=== PATIENT | female | born 1990 | race African-American/Black ===

== ENCOUNTER 2016-07-01 11:12 | Emergency (ER) | payer OTHER ==
[~2016-07-01] VITALS: Wt 63.5 kg
[~2016-07-01 11:12] MED LIST: ACET325T33 PO; ALBU8.5H3 INH; AMOX1TAB67 PO; AZIT250T94 PO; CEFU500T45 PO; CETI10CA PO; CIPR500T4 PO; FLUC150T17 PO; GUAI118L94 PO; IBUP-1542 PO; METR500T PO; NITR-58 PO; ONDA4TAB35 PO; ONDA4TAB8 PO; PRED20TA PO; PRENAT PO; PROM5SYR2 PO; SODI44SP11 NASAL
[2016-07-01 12:16] LABS: URINE BLOOD (Dip) POC Negative (NEGATIVE)
--- NOTE | 2016-07-01 12:16 | ERD ---
ER Documentation Chief Complaint Date/Time DATE: 07/01/16 TIME: 12:11 Chief Complaint LOW ABDOMINAL PAIN FOR THE PAST FEW MONTHS INTERMITTENT. NAUSEA .VOMITIN HPI Patient is a 26-year-old female who presents to the emergency department with pelvic pain 3 months. Patient states that she believed she had a miscarriage around April 10 of last year. Patient states she had bleeding for approximately 1 month. The bleeding has now resolved. Patient states since that time she has been having intermittent episodes of pelvic pain. Patient also reports daily nausea and vomiting. Patient states that she last vomited last night. Nonbloody nonbilious. She denies any cough, rhinorrhea, sore throat, fevers. Patient does report intermittent chills. Patient does report urinary frequency and dysuria. Patient denies any hematuria. Patient states her last menstrual period was in March of last year however she is unsure. ROS All systems reviewed and are negative except as per history of present illness. Medications Home Meds Active Scripts Cephalexin* (Keflex*) 500 Mg Capsule, 500 MG PO QID for 7 Days, CAP Prov:BRANDON SALMERON PA-C 07/01/16 Metoclopramide* (Reglan*) 10 Mg Tablet, 10 MG PO Q6 Y for NAUSEA AND/OR VOMITING , #10 TAB Prov:BRANDON SALMERON PA-C 07/01/16 Acetaminophen* (Tylophen*) 500 Mg Capsule, 1 CAP PO Q6H Y for PAIN AND OR ELEVATED TEMP, #20 CAP Prov:BRANDON SALMERON PA-C 07/01/16 Acetaminophen* (Tylenol*) 325 Mg Tablet, 1 TAB PO Q6 Y for PAIN AND OR ELEVATED TEMP, #20 TAB Prov:NAIMA HARTMANN PA-C 04/08/16 Nitrofurantoin Monohyd Macrocr* (Macrobid*) 100 Mg Capsr, 100 MG PO BID for 7 Days, CAP Prov:NAIMA HARTMANN PA-C 04/08/16 Cetirizine Hcl* (Zyrtec*) 10 Mg Capsule, 10 MG PO DAILY, #10 TAB.CHEW Prov:BEBE DUNCAN PA-C 03/29/16 Albuterol Sulfate* (Proair HFA*) 8.5 Gm Hfa.aer.ad, 2 PUFF INH Q4, #1 INHALER Prov:BEBE DUNCAN PA-C 03/29/16 Prednisone* (Prednisone*) 20 Mg Tab, 40 MG PO DAILY for 4 Days, TAB Prov:BEBE DUNCAN PA-C 03/29/16 Azithromycin* (Zithromax*) 250 Mg Tablet, 250 MG PO .MORGAN DIRECTED, #6 TAB TAKE 500 MG (2 TABS) THE FIRST DAY THEN 250 MG (1 TAB) DAYS 2-5 Prov:BEBE DUNCAN PA-C 03/29/16 Acetaminophen* (Tylenol*) 325 Mg Tablet, 1 TAB PO Q6 Y for PAIN AND OR ELEVATED TEMP, #20 TAB Prov:MICHELA ERAZO PA-C 03/02/16 Ondansetron Hcl* (Zofran*) 4 Mg Tablet, 4 MG PO Q6H for NAUSEA AND/OR VOMITING, #30 TAB Prov:MICHELA ERAZO PA-C 03/02/16 Ciprofloxacin Hcl* (Ciprofloxacin Hcl*) 500 Mg Tablet, 500 MG PO BID for 7 Days , TAB Prov:MICHELA ERAZO PA-C 03/02/16 Promethazine HCl/Codeine (Prometh-Codein 6.25-10 mg/5 ml) 5 Ml Syrup, 5 ML PO QHS, #100 Prov:MICHELA ERAZO PA-C 03/02/16 Nitrofurantoin Monohyd Macrocr* (Macrobid*) 100 Mg Capsr, 100 MG PO BID for 7 Days, CAP Prov:BEBE DUNCAN PA-C 01/14/16 Ondansetron Hcl* (Zofran* ODT) 4 mg -ODT Tab.disper, 4 MG PO Q6 Y for NAUSEA AND /OR VOMITING, #10 TAB Prov:ABI NICK DO 10/21/15 Fluconazole* (Diflucan*) 150 Mg Tablet, 150 MG PO ONCE, #1 TAB Prov:SPENCER HOPE PA-C 10/14/15 Cefuroxime Axetil* (Cefuroxime Axetil*) 500 Mg Tablet, 500 MG PO BID for 7 Days , TAB Prov:SPENCER HOPE PA-C 10/14/15 Metronidazole* (Flagyl*) 500 Mg Tablet, 500 MG PO BID for 7 Days, TAB Prov:SPENCER HOPE PA-C 10/14/15 Sodium Chloride (Saline Nasal [place]) 45 Ml [place], 2 SPRAYS NASAL Q2H Y for NASAL CONGESTION, #1 BOTTLE Prov:CARLOS MCBRIDE. BACK PAD INSPECTOR 06/28/15 Guaifenesin-Codeine Phosphate* (Guaifenesin* with Codeine Liq) 120 Ml Liquid, 5 ML PO Q4H for COUGH, #60 ML Prov:CARLOS MCBRIDE. BACK PAD INSPECTOR 06/28/15 Ibuprofen* (Motrin*) 600 Mg Tab, 600 MG PO Q6H Y for PAIN AND OR ELEVATED TEMP, #30 TAB Prov:CARLOS MCBRIDE. BACK PAD INSPECTOR 06/28/15 Amoxicillin-Clavulanate K* (Augmentin*) 500 Mg Tab, 500 MG PO BID for 5 Days, TAB Prov:EPI CRABTREE PA-C 04/09/15 Multivit/Min/Fol Ac/Iron/Pren* ( S*) 1 Tab Tab, 1 TAB PO DAILY for 30 Days, TAB Prov:BENITESPATRICK I. BACK PAD INSPECTOR 04/05/15 Nitrofurantoin Monohyd Macrocr* (Macrobid*) 100 Mg Capsr, 100 MG PO BID for 7 Days, CAP Prov:BENITESPATRICK I. BACK PAD INSPECTOR 04/05/15 Allergies Allergies: Coded Allergies: No Known Allergy (Unverified , 09/01/15) PMhx/Soc History of Surgery: No Anesthesia Reaction: No Hx Neurological Disorder: No Hx Respiratory Disorders: No Hx Cardiac Disorders: No Hx Psychiatric Problems: No Hx Miscellaneous Medical Probl: No Hx Alcohol Use: Yes Hx Alcohol Use: No Hx Substance Use: No Hx Tobacco Use: No Physical Exam Vitals Vital Signs Date Time Temp Pulse Resp B/P Pulse Ox O2 Delivery O2 Flow Rate FiO2 07/01/16 11:16 97.4 92 21 120/56 98 Physical Exam GENERAL: Well-developed, well-nourished female. Appears in no acute distress. HEAD: Normocephalic, atraumatic. EYES: Pupils are equally reactive bilaterally. EOMs grossly intact. No conjunctival erythema. ENT: Moist mucous membranes. No uvula deviation. No kissing tonsils. NECK: Supple. No meningismus. Normal range of motion of the neck. LUNG: Clear to auscultation bilaterally. No rhonchi, wheezing, rales or coarse breath sounds. HEART: Regular rate and rhythm. No murmurs, rubs or gallops. ABDOMEN: No scars, ecchymosis or rashes noted. Soft and nondistended. Palpable uterus. Tender to palpation of the suprapubic region. Positive bowel sounds in all four quadrants. No rebound tenderness, no guarding. (-) McBurney's point tenderness. No CVA tenderness. BACK: No midline tenderness. EXTREMITIES: Equal pulses bilaterally. No peripheral clubbing, cyanosis or edema. No unilateral leg swelling. NEUROLOGIC: Alert and oriented. Moving all four extremities without any difficulty. Normal speech. Steady gait. SKIN: Normal color. Warm and dry. No rashes or lesions. Results 24 hrs Laboratory Tests Test 07/01/16 12:14 Bedside Urine Blood Negative Bedside Urine Glucose (UA) Negative Bedside Urine Ketones (LAB) 4+ Bedside Urine Leukocyte Esterase (L 1+ Bedside Urine Nitrite (LAB) Negative Bedside Urine Protein (LAB) Trace Bedside Urine pH (LAB) 7.0 Procedures/MDM ED COURSE: The patient was stable throughout ED course. I kept the patient and/or family informed of laboratory and diagnostic imaging results throughout the ED course. Patient's urine test came back positive. I notify the patient that she was . Patient is unsure when her last menstrual period was an estimated to be in March of last year. At this time, transabdominal second to third trimester OB ultrasound was ordered. DIAGNOSTIC IMAGING: Read by radiologist. DIAGNOSTIC IMAGING REPORT Patient: MARISABEL SHOOK : 1990 Age: 26 Sex: F [id number] DOS: 07/01/16 1209 Ordering MD: BRANDON SALMERON PA-C Location: FTE Room/Bed: PROCEDURE: US OB. CLINICAL INDICATION: Size and dates , pelvic pain TECHNIQUE: Multiple sonographic images of the pelvis and gravid uterus were obtained. The images were reviewed on a PACS workstation. COMPARISON: 04/08/2016 FINDINGS: There is a single viable intrauterine gestation. Cardiac activity is present with 148 beats per minute. There is a vertex presentation. The placenta is anterior. There is no evidence for placenta previa. There are multiple placental lakes noted. There is a normal amount of amniotic fluid with a MVP = 5.2 cm. Measurements were made in order to determine age. The results are as follows: BPD = 4.6 cm HC = 16.4 cm AC = 15 cm FL = 3.1 cm Estimated gestational age of approximately 19 weeks and 5 days based on ultrasound measurements. The estimated date of delivery is 11/20/2016, based on ultrasound measurements. The EFW = 320 g, % RPTAT: AA IMPRESSION: Single viable intrauterine gestation of approximately 19 weeks and 5 days based on ultrasound measurements. Anterior placenta with placental lakes noted. .Thony Yañez MD, MD Date Time Electronically viewed and signed by .Thony Yañez MD, MD on 07/01/2016 13: 23 .S/ CC: BRANDON SALMERON PA-C MEDICAL DECISION MAKING: This is a 26-year-old female who presents with pelvic pain and intermittent episodes of vomiting 3 months. Vital signs were reviewed. Patient was afebrile. test was positive. Patient was unsure when her last period was. Estimated to be in March of last year. Patient denied any vaginal bleeding at this time. A transabdominal second/third trimester ultrasound was obtained which showed an intrauterine of approximately 19 weeks and 5 days. Anterior placenta with placental lakes noted. Patient's urine showed 1+ leukocyte esterase. Patient did not have any vaginal bleeding currently, blood work was not obtained. I discussed this case with my supervising physician, Dr. Barlow, who agreed with this plan. Given these findings, the patient's presentation is most consistent with intrauterine and UTI.. I have a much lower clinical concern for ectopic , ovarian torsion, PID, tubo-ovarian abscess, fibroids, endometriosis, vulvovaginitis, pyelonephritis, demise, threatened , incomplete . PRESCRIPTIONS: Keflex Tylenol Reglan DISCHARGE: At this time, patient is stable for discharge and outpatient management. Patient was advised to follow-up with an [employer] for further management of of her new . Patient will need to receive care as soon as possible. Patient is also advised to abstain from any drug or alcohol use given new diagnosis of . I have instructed the patient to follow-up with his/her primary care physician in 1-2 days. I have discussed with the patient the possibility of needing to see a specialist for further workup and diagnostic studies if the pain persists. I have instructed the patient to promptly return to the ER at any time for any new or worsening symptoms including increased pain, nausea, vomiting, vaginal bleeding, weakness or fever. The patient and/or family expressed understanding of and agreement with this plan. All questions were answered. Home care instructions were provided. Departure Diagnosis: Primary Impression: Weeks of gestation: unspecified Qualified Code: Z33.1 - , unspecified gestational age Condition: Stable Patient Instructions: , New Dx Referrals: [facility] YOU HAVE RECEIVED A MEDICAL SCREENING EXAM AND THE RESULTS INDICATE THAT YOU DO NOT HAVE A CONDITION THAT REQUIRES URGENT TREATMENT IN THE EMERGENCY DEPARTMENT. FURTHER EVALUATION AND TREATMENT OF YOUR CONDITION CAN WAIT UNTIL YOU ARE SEEN IN YOUR DOCTORS OFFICE WITHIN THE NEXT 1-2 DAYS. IT IS YOUR RESPONSIBILITY TO MAKE AN APPOINTMENT FOR FOLOW-UP CARE. IF YOU HAVE A PRIMARY DOCTOR --you should call your primary doctor and schedule an appointment IF YOU DO NOT HAVE A PRIMARY DOCTOR YOU CAN CALL OUR PHYSICIAN REFERRAL HOTLINE AT IF YOU CAN NOT AFFORD TO SEE A PHYSICIAN YOU CAN CHOSE FROM THE FOLLOWING [facility] [address] [facility]. [facility] [address] [facility] [facility] [address] [facility] [facility] [address] [facility]. [facility] [address] [facility] [facility]. [address] [facility] YOU HAVE RECEIVED A MEDICAL SCREENING EXAM AND THE RESULTS INDICATE THAT YOU DO NOT HAVE A CONDITION THAT REQUIRES URGENT TREATMENT IN THE EMERGENCY DEPARTMENT. FURTHER EVALUATION AND TREATMENT OF YOUR CONDITION CAN WAIT UNTIL YOU ARE SEEN IN YOUR DOCTORS OFFICE WITHIN THE NEXT 1-2 DAYS. IT IS YOUR RESPONSIBILITY TO MAKE AN APPOINTMENT FOR FOLOW-UP CARE. IF YOU HAVE A PRIMARY DOCTOR --you should call your primary doctor and schedule and appointment IF YOU DO NOT HAVE A PRIMARY DOCTOR YOU CAN CALL OUR PHYSICIAN REFERRAL HOTLINE AT . IF YOU CAN NOT AFFORD TO SEE A PHYSICIAN YOU CAN CHOSE FROM THE FOLLOWING [facility] INSTITUTIONS: [facility] [address] [place] [address] [facility] [address] [place] [address] [facility] [address] [place] [address] [employer] [address] [facility] [address] [place], [place] [id number] OFFICE FAX [facility] [address] [place] [address] [address] [place] [address] [place] [address] [address] [facility] [address] [facility], [address], [facility] [address] [address] [place] [address] [facility] [address] [place] [address] [phone] [facility] [address] - [address] WELLER [address], [facility] [address] [address] [address] [facility]. [address], [facility] [address] [address] [address] [place], [place] [id number] Additional Instructions: Call your primary care doctor/OBGYN TOMORROW for an appointment during the next 1-2 days.See the doctor sooner or return here if your condition worsens before your appointment time. Referral list for [employer]. BRANDON SALMERON PA-C Jul 01, 2016 12:15
--- NOTE | 2016-07-01 13:24 | RADRPT ---
PROCEDURE: US OB. CLINICAL INDICATION: Size and dates , pelvic pain TECHNIQUE: Multiple sonographic images of the pelvis and gravid uterus were obtained. The images were reviewed on a PACS workstation. COMPARISON: 04/08/2016 FINDINGS: There is a single viable intrauterine gestation. Cardiac activity is present with 148 beats per min douglas. There is a vertex presentation. The placenta is anterior. There is no evidence for placenta previa. There are multiple placental lak es noted. There is a normal amount of amniotic fluid with a MVP = 5.2 cm. Measurements were made in order to determine age. The results are as follows: BPD =4.6 cm HC =16.4 cm AC =15 cm FL =3.1 cm Estimated gestational age of approximately 19 weeks and 5 days based on ultrasound measurements. The estimated date of delivery is 11/20/2016, based on ultrasound measurements. The EFW = 320 g, % RPTAT: AA IMPRESSION: Single viable intrauterine gestation of approximately 19 weeks and 5 days based on ultrasound measu rements. Anterior placenta with placental lakes noted. .Thony Yañez MD, MD Date Time Electronically viewed and signed by .Thony Yañez MD, on 07/01/2016 13:23 .S/
[2016-07-01] MEDS ORDERED: METO10TA92 PO (13:46)
[2016-07-01] MEDS ORDERED: ACET500C5 PO (13:46)
[2016-07-01] MEDS ORDERED: CEPH-443 PO (13:46)
== END 2016-07-01 14:15 | disposition home or self-care (01) ==
LOC: FTE 11:12
DX: R10.2 Pelvic and perineal pain (principal); Z33.1 Pregnant state, incidental
CPT/HCPCS: 76805; 81003; Z7502

== ENCOUNTER 2016-08-29 15:21 | Outpatient (CLI) | payer BC, OTHER ==
[~2016-08-29] VITALS: Ht 180.3 cm; Wt 65.5 kg
[~2016-08-29 15:21] MED LIST changes: +ACET500C5 PO; +CEPH-443 PO; +METO10TA92 PO
[2016-08-29 15:43] VITALS: Ht 180.3 cm; Wt 65.5 kg
[2016-08-29 15:44] VITALS: BP 109/63; PULSE 82; RESP 18
--- NOTE | 2016-08-29 16:32 | RADRPT ---
PROCEDURE: US OB. CLINICAL INDICATION: Uncertain size and dates. TECHNIQUE: Multiple sonographic images of the uterus were obtained. The images were revi ewed on a PACS workstation. COMPARISON: No prior studies are available for comparison. FINDINGS: There is a single live intrauterine gestation. heart rate is 159 beats per minute. Measurements were made in order to determine age. The results are as follows: BPD = 7.07 cm. HC = 25.67 cm. AC = 24.29 cm. FL = 5.39 cm. Estimated weight is 1233 +/- 185 grams. LMP growth percentile is 50%. Menstrual age by ultrasound dates is 28 weeks 3 days. The estimated date of delivery is 11/18/2016. Position is cephalic and placenta is anterior grade 1. There is no evidence for an abruption or plac enta previa. IMPRESSION: 1. Single live intrauterine gestation of 28 weeks 3 days menstrual age by ultrasound dates. 2. The estimated date of delivery is 11/18/2016. RPTAT: QQ .Juwan Puente MD, Date Time Electronically viewed and signed by .Juwan Puente MD, on 08/29/2016 16:32 .R/
--- NOTE | 2016-08-29 16:35 | RADRPT ---
PROCEDURE: US biophysical profile. CLINICAL INDICATION: Decreased motion. TECHNIQUE: Multiple sonographic images of the uterus were obtained. The images were revi ewed on a PACS workstation. COMPARISON: No prior studies are available for comparison. FINDINGS: There is a single live intrauterine gestation. heart rate is 161 beats per minute. The position is cephalic. The placenta is anterior grade 1 with no abruption or previa. The YG is 20.9 cm. (Normal = 5-20 cm.) Breathing Movement: 2 Gross Body Movement: 2 Tone: 2 Qualitative Amniotic Fluid Volume: 2 TOTAL: 8 IMPRESSION: 1. The biophysical score is 8/8. RPTAT: QQ .Juwan Puente MD, MD Date Time Electronically viewed and signed by .Juwan Puente MD, on 08/29/2016 16:35 .R/
--- NOTE | 2016-08-29 17:04 | QN ---
Documentation Comment pt co of DFM now improved vss exam wnl us wnl ap iup 28 weeks poor care referral to OBGYN er precuations ED QUINTERO MD August 29, 2016 17:04
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
== END 2016-08-29 17:08 | disposition home or self-care (01) ==
LOC: L-D 15:21 → OBT 15:21
DX: O36.8120 Decreased fetal movements, second trimester, not applicable or unspecified (principal); Z3A.28 28 weeks gestation of pregnancy
CPT/HCPCS: 76815; 76818; G0463

== ENCOUNTER 2016-09-11 13:48 | Emergency (ER) | payer BC ==
[~2016-09-11] VITALS: Ht 170.2 cm; Wt 62.0 kg
[~2016-09-11 13:48] MED LIST changes: -ACET325T33 PO; -ACET500C5 PO; -ALBU8.5H3 INH; -AMOX1TAB67 PO; -AZIT250T94 PO; -CEFU500T45 PO; -CEPH-443 PO; -CETI10CA PO; -CIPR500T4 PO; -FLUC150T17 PO; -GUAI118L94 PO; -IBUP-1542 PO; -METO10TA92 PO; -METR500T PO; -NITR-58 PO; -ONDA4TAB35 PO; -ONDA4TAB8 PO; -PRED20TA PO; -PROM5SYR2 PO; -SODI44SP11 NASAL
[2016-09-11 13:50] VITALS: Ht 170.2 cm; Wt 62.0 kg
[2016-09-11] MEDS ORDERED: CLOT21CR4 VAG (14:47)
--- NOTE | 2016-09-11 15:56 | ERD ---
ER Documentation Chief Complaint Date/Time DATE: 09/11/16 TIME: 15:55 Chief Complaint pt bib self with c/o painful itching, denies n/v/pelvic pain and no bleedin HPI Patient is a 26-year-old female who is with a last normal menstrual period of 02/14/2016 who presents to the ED with vaginal itching and white discharge on and off for the last 2 years. She states that she has a history of yeast infection and would like a treatment. Denies fever or chills. Denies pelvic pain. Denies vaginal bleeding denies dysuria. ROS All systems reviewed and are negative except as per history of present illness. Medications Home Meds Active Scripts Nitrofurantoin Monohyd Macrocr* (Macrobid*) 100 Mg Capsr, 100 MG PO BID for 14 Days, CAP Prov:CASEY KAPOOR PA-C 09/11/16 Clotrimazole* (Gyne-Lotrimin 3*) 21 Gm Cream.appl, 1 APPLIC VAG HS for 3 Days, EA Prov:CASEY KAPOOR PA-C 09/11/16 Multivit/Min/Fol Ac/Iron/Pren* ( S*) 1 Tab Tab, 1 TAB PO DAILY for 30 Days, TAB Prov:PATRICK BENITES NP 04/05/15 Allergies Allergies: Coded Allergies: No Known Allergy (Unverified , 08/29/16) PMhx/Soc History of Surgery: No Anesthesia Reaction: No Hx Neurological Disorder: No Hx Respiratory Disorders: No Hx Cardiac Disorders: No Hx Psychiatric Problems: No Hx Miscellaneous Medical Probl: No Hx Alcohol Use: Yes Hx Substance Use: No Hx Tobacco Use: No Physical Exam Vitals Vital Signs Date Time Temp Pulse Resp B/P Pulse Ox O2 Delivery O2 Flow Rate FiO2 09/11/16 13:50 98.3 64 16 127/80 98 Physical Exam GENERAL: Well-developed, well-nourished female. Appears in no acute distress. HEAD: Normocephalic, atraumatic. EYES: Pupils are equally reactive bilaterally. EOMs grossly intact. No conjunctival erythema. ENT: Moist mucous membranes. No uvula deviation. No kissing tonsils. No exudates. NECK: Supple. No lymphadenopathy or thyromegaly. No meningismus. negative kernig. negative brudinski. LUNG: Clear to auscultation bilaterally. No rhonchi, wheezing, rales or coarse breath sounds. HEART: Regular rate and rhythm. No murmurs, rubs or gallops. ABDOMEN: No scars, ecchymosis or rashes noted. Soft, nontender, and nondistended. Positive bowel sounds in all four quadrants. No rebound tenderness , no guarding. (-) McBurneys point tenderness. No CVA tenderness. BACK: No midline tenderness. Extremities: Equal pulses bilaterally. No peripheral clubbing, cyanosis or edema. No unilateral leg swelling. NEUROLOGIC: Alert and oriented. Moving all four extremities. 5/5 strength in all extremities. Normal speech. Steady gait. SKIN: Normal color. Warm and dry. No rashes or lesions. Capillary refill < 2 seconds Results 24 hrs Laboratory Tests Test 09/11/16 16:02 Bedside Urine pH (LAB) 7.0 Bedside Urine Protein (LAB) Negative Bedside Urine Glucose (UA) Negative Bedside Urine Ketones (LAB) Negative Bedside Urine Blood Negative Bedside Urine Nitrite (LAB) Negative Bedside Urine Leukocyte Esterase (L 2+ Procedures/MDM ER COURSE: I kept the patient and/or family informed of laboratory and diagnostic imaging results throughout the emergency room course. MEDICAL DECISION MAKING: This is a 26-year-old female who is who presents to the ED with a white vaginal discharge and itchiness with dysuria. Vital signs were reviewed. Patient is afebrile. Patient is not hypoxic. Patient is not toxic or ill- appearing. Patient has a UTI her urine shows 2+ leukocytes with no hematuria or nitrites. Low suspicion for ovarian torsion, PID, tuboovarian abscess, ectopic , bowel obstruction, pyelonephritis, appendicitis, cervicitis, septic , molar , HELLP syndrome, preeclampsia, eclampsia, placenta previa, placenta abruptia. Patient also has yeast infection. Patient has an appointment with her OB doctor in 2 days. I do not think an ultrasound of blood work presents at this time as patient does not have pelvic pain and is not complaining of vaginal bleeding. DISCHARGE: At this time, patient is stable for discharge and outpatient management with no new complaints during the ER course. Patient was sent home with Macrobid and clotrimazole cream. Advised to follow-up with her OB doctor this week.. Patient will be discharged home with instructions to recheck for new or worsening symptoms such as fever, nausea, weakness, LOC and to follow up with primary care in the next 1-2 days. Patient was advised to return to the ER for any new or worsening symptoms. Plan was discussed and patient and/or family understands and agrees. Home instructions were given. Departure Diagnosis: Primary Impression: Vaginal yeast infection Additional Impression: Dysuria Condition: Stable Patient Instructions: Vaginal Infection: Yeast (Candidiasis) Referrals: KRISHNA WALTERS Additional Instructions: Call your primary care doctor TOMORROW for an appointment during the next 1-2 days.See the doctor sooner or return here if your condition worsens before your appointment time. CASEY KAPOOR PA-C September 11, 2016 15:56
[2016-09-11 16:00] LABS: URINE BLOOD (Dip) POC Negative (NEGATIVE)
[2016-09-11] MEDS ORDERED: NITR-58 PO (16:05)
== END 2016-09-11 16:15 | disposition home or self-care (01) ==
LOC: FTE 13:48
DX: B37.3 Candidiasis of vulva and vagina (principal); R30.0 Dysuria
CPT/HCPCS: 81003; Z7502; 99283

== ENCOUNTER 2016-10-31 12:23 | Inpatient (IN) | payer BC, OTHER ==
[~2016-10-31 12:23] MED LIST changes: +CLOT21CR4 VAG; +NITR-58 PO
[2016-10-31] MEDS ORDERED: LACTATED RINGER'S 1,000 ML IV SCH (12:32)
[2016-10-31 12:53] LABS: ADD SCAN DIFF NO
--- NOTE | 2016-10-31 12:53 | HP ---
Date/Time of Note Date/Time of Note DATE: 10/31/16 TIME: 12:52 OB - History Hx of Present Free Text/Dictation pt presented with percipitous labor and delivery no pmh no psh : 2 Para: 1 Care: Good Care Obstetrical Complications: None Past Family/Social History * Past Medical, Surgical, Family and Obstetric Histories reviewed from chart. OB Admission Exam Physical Exam HEENT: WNL Heart: Rhythm Normal Abdomen: WNL Extremities: Normal Reflexes: Normal Cervical Dilatation: None OB Assessment/Plan Plan: Expectant Management ED QUINTERO MD Oct 31, 2016 12:53
[2016-10-31] MEDS ORDERED: LACTATED RINGER'S 1,000 ML IV* SCH (12:54)
--- NOTE | 2016-10-31 12:54 | LDN ---
Date/Time of Note Date/Time of Note DATE: 10/31/16 TIME: 12:53 Delivery Summary pt with precipitous labor and delivery Placenta Delivered: Spontaneously Sponge & Needle done & correct: Yes All needle counts correct: Yes Any foreign bodies felt in the: No Problems: Delivery Information Suctioning Nose & mouth suctioned at bhargav: Yes Umbilical Cord Umbilical cord with: 3 Vessels Cord presentations: nuchal cord Nuchal cord present X: 1 Cord Blood was obtained: Yes ED QUINTERO MD Oct 31, 2016 12:54
[2016-10-31 12:56] LABS: BASOPHIL # 0.1 10^3/ul (0.0-0.1); BASOPHILS % 0.4 % (0.0-2.0); EOSINOPHILS # 0.1 10^3/ul (0.0-0.5); EOSINOPHILS % 0.3 % (0.0-7.0); HEMATOCRIT 32.2 % (37.0-47.0); HEMOGLOBIN 11.5 g/dl (12.0-16.0); LYMPHOCYTES # 2.9 10^3/ul (0.8-2.9); MEAN CORPUSCULAR HEMOGLOBIN 31.2 pg (29.0-33.0); MEAN CORPUSCULAR HGB CONC 35.7 g/dl (32.0-37.0); MEAN CORPUSCULAR VOLUME 87.3 fl (82.0-101.0); MEAN PLATELET VOLUME 12.7 fl (7.4-10.4); MONOCYTE # 0.7 10^3/ul (0.3-0.9); NEUTROPHIL # 13.8 10^3/ul (1.6-7.5); NEUTROPHILS % 76.9 % (39.0-77.0); PLATELET COUNT 191 10^3/UL (140-415); RED BLOOD COUNT 3.69 10^6/ul (4.20-5.40); RED CELL DISTRIBUTION WIDTH 13.2 % (11.5-14.5)
[2016-10-31] MEDS ORDERED: ACETAMINOPHEN/CODEINE #3 TAB PO PRN (13:00)
[2016-10-31] MEDS ORDERED: BENZOCAINE 20% 56 ML SPRAY TOP PRN (13:00)
[2016-10-31] MEDS ORDERED: LIDOCAINE 1% (MPF) 30 ML INJ INJ PRN (13:00)
[2016-10-31] MEDS ORDERED: LACTATED RINGER'S 1,000 ML IV PRN (13:00)
[2016-10-31] MEDS ORDERED: CARBOPROST 250 MCG INJ IM PRN ×2 (13:00)
[2016-10-31] MEDS ORDERED: DIBUCAINE 1% 30 GM OINT PR PRN (13:00)
[2016-10-31] MEDS ORDERED: OXYTOCIN 30 UNITS/LR 500 ML IV SCH ×2 (13:00)
[2016-10-31] MEDS ORDERED: BUTORPHANOL 2 MG INJ IV PRN (13:00)
[2016-10-31] MEDS ORDERED: MISOPROSTOL 200 MCG TAB PR PRN ×2 (13:00)
[2016-10-31] MEDS ORDERED: METHYLERGONOVINE 0.2 MG INJ IM PRN ×2 (13:00)
[2016-10-31] MEDS ORDERED: WITCH HAZEL/GLYCERIN PAD PR PRN (13:00)
[2016-10-31] MEDS ORDERED: AMPICILLIN 2 GM/NS (PMX) 100 ML IV ONE (13:00)
[2016-10-31] MEDS ORDERED: OXYTOCIN 30 UNITS/LR 500 ML IV PRN ×2 (13:00)
[2016-10-31] MEDS ORDERED: LANOLIN 7 GM TUBE TOP PRN (13:00)
[2016-10-31] MEDS: IBUPROFEN 600 MG TAB PO PRN ×2 (13:09→13:33)
[2016-10-31 13:19] LABS: INR 0.78; PARTIAL THROMBOPLASTIN TIME 26.9 Sec (25.0-35.0); PROTIME 10.8 Sec (12.2-14.2); PT RATIO 0.8
[2016-10-31] MEDS: OXYTOCIN 30 UNITS/LR 500 ML IV SCH ×2 (14:19→16:54)
[2016-10-31 15:30] VITALS: BP 120/75; PULSE 58; RESP 18
[2016-10-31 16:00] VITALS: BP 132/70; PULSE 58; RESP 18
[2016-10-31 16:03] LABS: BARBITURATES Negative (NEGATIVE); BENZODIAZEPINES Negative (NEGATIVE); CANNABINOIDS Positive (NEGATIVE); COCAINE Negative (NEGATIVE); OPIATES Negative (NEGATIVE)
[2016-10-31] MEDS: ACETAMINOPHEN/CODEINE #3 TAB PO PRN ×2 (16:14→19:56)
[2016-10-31] MEDS ORDERED: AMPICILLIN 1 GM/NS (PMX) 50 ML IV SCH (17:00)
[2016-10-31] MEDS: IBUPROFEN 600 MG TAB PO SCH (18:04)
[2016-10-31 20:00] VITALS: BP 109/63; PULSE 69; RESP 20
[2016-10-31] MEDS: SENNA/DOCUSATE NA (8.6MG/50MG) TAB PO SCH (21:33)
[2016-11-01] MEDS: IBUPROFEN 600 MG TAB PO SCH ×4 (00:03→18:05)
[2016-11-01 04:00] VITALS: BP 106/60; PULSE 84; RESP 18
[2016-11-01 08:00] VITALS: BP 107/58; PULSE 66; RESP 18
[2016-11-01] MEDS: SENNA/DOCUSATE NA (8.6MG/50MG) TAB PO SCH (09:18)
[2016-11-01 10:05] LABS: ADD SCAN DIFF NO
[2016-11-01 10:14] LABS: BASOPHIL # 0.1 10^3/ul (0.0-0.1); BASOPHILS % 0.4 % (0.0-2.0); EOSINOPHILS # 0.1 10^3/ul (0.0-0.5); EOSINOPHILS % 0.6 % (0.0-7.0); HEMATOCRIT 28.4 % (37.0-47.0); HEMOGLOBIN 9.9 g/dl (12.0-16.0); LYMPHOCYTES # 3.7 10^3/ul (0.8-2.9); MEAN CORPUSCULAR HEMOGLOBIN 30.1 pg (29.0-33.0); MEAN CORPUSCULAR HGB CONC 34.9 g/dl (32.0-37.0); MEAN CORPUSCULAR VOLUME 86.3 fl (82.0-101.0); MEAN PLATELET VOLUME 12.7 fl (7.4-10.4); MONOCYTE # 0.9 10^3/ul (0.3-0.9); MONOCYTES % 5.4 % (0.0-11.0); NEUTROPHIL # 11.7 10^3/ul (1.6-7.5); NEUTROPHILS % 70.5 % (39.0-77.0); PLATELET COUNT 145 10^3/UL (140-415); RED BLOOD COUNT 3.29 10^6/ul (4.20-5.40); RED CELL DISTRIBUTION WIDTH 13.4 % (11.5-14.5); WHITE BLOOD COUNT 16.7 10^3/ul (4.8-10.8)
--- NOTE | 2016-11-01 15:56 | DS ---
Date/Time of Note Date/Time of Note DATE: 11/01/16 TIME: 15:52 Obstetrical Discharge Record Final Diagnosis Final Diagnosis: delivered Vaginal Delivery Obstetrical Delivery: Spontaneous Condition on Discharge Physical Assessment Last Vitals: Post day 1 Laboratory Tests Test 11/01/16 09:40 White Blood Count 16.710^3/ul Red Blood Count 3.2910^6/ul Hemoglobin 9.9g/dl Hematocrit 28.4% Mean Corpuscular Volume 86.3fl Mean Corpuscular Hemoglobin 30.1pg Mean Corpuscular Hemoglobin Concent 34.9g/dl Red Cell Distribution Width 13.4% Platelet Count 63220^3/UL Mean Platelet Volume 12.7fl Neutrophils % 70.5% Lymphocytes % 22.0% Monocytes % 5.4% Eosinophils % 0.6% Basophils % 0.4% Nucleated Red Blood Cells % 0.0/100WBC Neutrophils # 11.710^3/ul Lymphocytes # 3.710^3/ul Monocytes # 0.910^3/ul Eosinophils # 0.110^3/ul Basophils # 0.110^3/ul Nucleated Red Blood Cells # 0.010^3/ul Current Medications Medications (Trade) Dose Ordered Sig/Tip Route PRN Reason Start Time Stop Time Status Last Admin Dose Admin Lactated Ringer's 1,000 ml @ 125 mls/hr Q8H IV 10/31/16 12:32 10/31/16 16:21 DC Ampicillin 100 ml @ 100 mls/hr ONCE ONCE IV 10/31/16 13:00 10/31/16 16:21 DC Ampicillin (Ampicillin 1 Gm/ NS (Pmx)) 50 ml @ 100 mls/hr Q4H IV 10/31/16 17:00 10/31/16 17:00 DC Butorphanol Tartrate (Stadol) 2 mg Q2H PRN IV PAIN 10/31/16 13:00 10/31/16 16:21 DC Lidocaine 30 ml 30 ml ONCE PRN INJ EPISIOTOMY/TEARING 10/31/16 13:00 Oxytocin/Lactated Ringer's 500 ml @ 125 mls/hr ONCE -MAY REPEAT X1 IV 10/31/16 13:00 10/31/16 16:13 DC 10/31/16 12:56 Oxytocin/Lactated Ringer's 500 ml @ 125 mls/hr ONCE IV 10/31/16 13:00 10/31/16 21:20 DC Ibuprofen 600 mg 600 mg ONCE PRN PO Mild Pain (Pain Score 1-3) 10/31/16 13:00 10/31/16 13:33 Lactated Ringer's 1,000 ml @ 2,000 mls/hr Q30M PRN IV PRE-EPIDURAL BOLUS 10/31/16 13:00 10/31/16 16:13 DC Oxytocin/Lactated Ringer's 500 ml @ 0 mls/hr ONCE PRN IV For Hemorrhage Management 10/31/16 13:00 10/31/16 21:20 DC Methylergonovine Maleate (Methergine) 0.2 mg ONCE PRN IM VAGINAL BLEEDING 10/31/16 13:00 Carboprost Tromethamine (Hemabate) 250 mcg ONCE PRN IM VAGINAL BLEEDING 10/31/16 13:00 Misoprostol 1000 mcg 1,000 mcg ONCE PRN [place] VAGINAL BLEEDING 10/31/16 13:00 Oxytocin/Lactated Ringer's 500 ml @ 125 mls/hr Q4H IV 10/31/16 12:54 10/31/16 20:53 DC 10/31/16 14:19 Lactated Ringer's (Lr) 1,000 ml @ 125 mls/hr Q8H IV* 10/31/16 12:54 10/31/16 21:20 DC Ibuprofen (Motrin) 600 mg Q6 PO 10/31/16 18:00 11/01/16 12:24 Acetaminophen/ Codeine Phosphate (Tylenol No.3) 1 tab Q4H PRN PO PAIN LEVEL 1-5 10/31/16 13:00 Acetaminophen/ Codeine Phosphate (Tylenol No.3) 2 tab Q4H PRN PO PAIN LEVEL 6-10 10/31/16 13:00 10/31/16 19:56 Senna/Docusate Sodium (Senokot-S) 1 tab BID PO 10/31/16 21:00 11/01/16 09:18 Witch Debbi/ Glycerin (Tucks Pads) 1 pad BEDSIDE MEDICATION PRN [place] HEMORRHOID/EPISIOTMY PAIN 10/31/16 13:00 10/31/16 16:17 Benzocaine (Dermoplast [place]) 1 spray BEDSIDE MEDICATION PRN TOP HEMORRHOID/EPISIOTMY PAIN 10/31/16 13:00 10/31/16 16:17 Dibucaine (Nupercainal) 1 applic BEDSIDE MEDICATION PRN [place] HEMORRHOID/EPISIOTMY PAIN 10/31/16 13:00 Lanolin 1 applic 1 applic BEDSIDE MEDICATION PRN TOP BEDSIDE FOR DADA TO NIPPLES 10/31/16 13:00 10/31/16 16:17 Oxytocin/Lactated Ringer's 500 ml @ 0 mls/hr ONCE PRN IV For Hemorrhage Management 10/31/16 13:00 10/31/16 16:13 DC Methylergonovine Maleate (Methergine) 0.2 mg ONCE PRN IM VAGINAL BLEEDING 10/31/16 13:00 10/31/16 16:21 DC Carboprost Tromethamine (Hemabate) 250 mcg ONCE PRN IM VAGINAL BLEEDING 10/31/16 13:00 10/31/16 16:13 DC Misoprostol (Cytotec) 1,000 mcg ONCE PRN [place] VAGINAL BLEEDING 10/31/16 13:00 10/31/16 16:13 DC Voiding: Yes Bowel Movement: Yes Breast: Soft, non-tender Fundus: Firm Abdomen and Incision: Post day 1 Patient is doing well, Ambulatory She is afebrile Abdomen is soft , Fundus is firm Moderate amount of lochia Breasts are soft, Nipples are intact No calf tenderness. Breast feeding the new born. Calf Tenderness: No Patient Condition: Good JACLYN INTERIANO MD Nov 01, 2016 15:56
[2016-11-01 16:00] VITALS: BP 113/79; PULSE 79; RESP 18
[2016-11-02 11:34] LABS: RUBELLA ANTIBODY - IGG 9.04 index
== END 2016-11-01 21:15 | disposition home or self-care (01) | DRG 775 ==
LOC: OBT 12:23 → L-D 12:23 → OBT 12:33 → L-D 12:37 → PP1 15:17
PROVIDERS: ADMIT Obstetrics & Gynecology; ATTEND Obstetrics & Gynecology
PROC: 10E0XZZ Delivery of Products of Conception, External Approach (ICD-10-PCS; principal; 2016-10-31)
DX: O80 Encounter for full-term uncomplicated delivery (principal); Z37.0 Single live birth; Z3A.38 38 weeks gestation of pregnancy
CPT/HCPCS: 80307; 85025; 85610; 85730; 86592; 86762; 86900; 86901; 87340; 99464; G0463; J2590; J7120